=== PATIENT | male | born 1940 | race Caucasian/White ===

== ENCOUNTER → 2017-05-04 | Outpatient (CLI) | payer MEDICARE, BC ==
[~2017-05-04] MED LIST: ASPIRIN EC81 MG PO; COZAAR100 MG PO; CPAP INH; FISH OIL1000 MG PO; GLUCOPHAGE1000 MG PO; HYTRIN **IA 9/2 MG PO; LEVOTHROID (SY50 MCG PO; LIPITOR80 MG PO; MOBIC15 MG PO; NORCO 5-325 TA1 EACH PO; PLAVIX75 MG PO; PROTONIX40 MG PO; PROVENTIL OR V6.7 GM INH; SYMBICORT 16010.2 GM INH; TESSALON PERLE100 MG PO; VALTREX (NON-F500 MG PO; VITAMIN C500 M1 PO; VITAMIN D1000 UNIT PO; ZOLOFT100 MG PO
== END | disposition disaster alternative care site (69) ==
LOC: GRAD 12:36
DX: J84.10 Pulmonary fibrosis, unspecified (principal)

== ENCOUNTER → 2017-05-04 | Outpatient (CLI) | payer MEDICARE, BC | LOC: LGSMG 15:45 | DX: R06.09 Other forms of dyspnea (principal) ==

== ENCOUNTER 2017-06-18 14:29 | Day surgery (SDC) | payer MEDICARE, BC ==
[~2017-06-18] VITALS: Ht 172.7 cm; Wt 90.8 kg
--- NOTE | ~2017-06-18 | OR ---
PATIENT'S NAME: ARTHUR ROA [facility] AGE: 77 Y [address] ROOM: [place] [address] LOCATION: GPCU ADMIT DATE: 06/18/2017 OR/Procedure Report DISCHARGE DATE: 06/19/2017 FAMILY PHYSICIAN: oFx Tuttle MD ATTENDING PHYSICIAN: Nils Vasquez SURGEON: Manpreet Haney DO MANAGER ORANGE: DATE OF PROCEDURE: 06/18/2017 PREOPERATIVE DIAGNOSIS: Sick sinus syndrome with ventricular pauses greater than 4 seconds. POSTOPERATIVE DIAGNOSIS: Sick sinus syndrome with ventricular pauses greater than 4 seconds. PROCEDURE PERFORMED: Insertion of dual-chamber permanent pacemaker via the left subclavian system. REFERRING: Nils Vasquez MD BRIEF HISTORY: Mr. Roa is a 77-year-old white male with the above-noted diagnosis who has been brought to the operative suite today after informed consent was obtained for placement of his device. Appropriate IV sedation was achieved. He was sterilely prepped and draped over the anterior chest wall. The left infraclavicular space was anesthetized with 1% lidocaine. The patient was placed into a Trendelenburg position, the subclavian vein was accessed x2, and guidewires were placed under fluoroscopic guidance into the right atrium. An incision was created, and pocket was formed. Electrocautery was used for hemostasis. Guidewires were then brought through the incision via sheath and dilator assembly, and we placed our leads. We began with our right ventricular lead. It was a [employer] MRI lead, model 7742, serial #[id number], placed in the right ventricular distal septum, sensing R waves of 22.3 with a voltage threshold of 0.6 V at 0.5 msec and a pacing impedance of 1061 ohms. In a similar fashion, we placed our atrial lead, also a [employer] lead, model 7741, serial #[id number], placed in the right atrial appendage, sensing P waves of 5.3 with a measured threshold of 1 and a pacing impedance of 597 ohms. Each lead was then connected to the generator which was a [employer] MRI, model L111, serial #[id number]. Leads and generator were placed into the pocket. Appropriate sensing and pacing was noted. The patient was paced DDDR with a lower rate limit of 60 and maximal tracking rate of 130. The incision was then closed in a layered fashion with 2- 0 Vicryl and 4-0 Monocryl, and a sterile dressing was applied. The patient tolerated the procedure well and was transferred to the recovery area in stable condition. PATIENT'S NAME: ARTHUR ROA [facility] AGE: 77 Y [address] ROOM: [place] [address] LOCATION: GPCU ADMIT DATE: 06/18/2017 OR/Procedure Report DISCHARGE DATE: 06/19/2017 FAMILY PHYSICIAN: Fox Tuttle MD ATTENDING PHYSICIAN: Nils Vasquez DO NADEEM HENDERSON/modl /[id number] CC: Fox Tuttle MD d: 06/22/17 1325 t: 06/23/17 0754, OPERATIVE SUMMARY
[~2017-06-18 14:29] MED LIST changes: -NORCO 5-325 TA1 EACH PO
[2017-06-18 15:50] LABS: ALBUMIN 3.6 gm/dL (3.5-5.0); ANION GAP 15.3 (10.0-19.0); CREATININE 1.1 mg/dL (0.6-1.3); PHOSPHORUS 3.1 mg/dL (2.5-4.9); POTASSIUM 4.3 mMol/L (3.7-5.1)
[2017-06-18 15:54] LABS: BILIRUBIN URINE NEGATIVE (NEGATIVE); BLOOD URINE 25 /UL (NEGATIVE); COLOR URINE YELLOW (YELLOW); GLUCOSE URINE NEGATIVE (NEGATIVE); KETONE URINE NEGATIVE (NEGATIVE); LEUKOCYTES URINE NEGATIVE /UL (NEGATIVE); NITRITE URINE NEGATIVE (NEGATIVE); PROTEIN URINE 15 mg/dL (NEGATIVE); SPEC GRAVITY URINE 1.015 (1.003-1.035); TURBIDITY URINE CLEAR (CLEAR); UROBILINOGEN URINE NORMAL (NORMAL)
[2017-06-18 16:03] LABS: WBC URINE 0-2 #/HPF (NEGATIVE)
[2017-06-18 16:04] LABS: BACTERIA URINE NEGATIVE (NEGATIVE); EPITHELIAL URINE 0-2 #/HPF (NEGATIVE)
[2017-06-19] MEDS ORDERED: NORCO 5-325 TA1 EACH PO (12:32)
== END 2017-06-19 15:05 | disposition disaster alternative care site (69) ==
LOC: GPCU 14:29 → GSDC 14:29 → GPCU 14:29 → GSDC 06-19 15:05 → GPCU 06-19 15:05
PROVIDERS: Thoracic Surgery (Cardiothoracic Vascular Surgery)
PROC: 0JH606Z Insertion of Pacemaker, Dual Chamber into Chest Subcutaneous Tissue and Fascia, Open Approach (ICD-10-PCS; principal; 2017-06-18)
PROC: 02H63JZ Insertion of Pacemaker Lead into Right Atrium, Percutaneous Approach (ICD-10-PCS; 2017-06-18)
PROC: 02HK3JZ Insertion of Pacemaker Lead into Right Ventricle, Percutaneous Approach (ICD-10-PCS; 2017-06-18)
DX: I49.5 Sick sinus syndrome (principal); E11.9 Type 2 diabetes mellitus without complications; F32.9 Major depressive disorder, single episode, unspecified; I10 Essential (primary) hypertension; I25.10 Atherosclerotic heart disease of native coronary artery without angina pectoris; Z95.5 Presence of coronary angioplasty implant and graft; G47.33 Obstructive sleep apnea (adult) (pediatric); K21.9 Gastro-esophageal reflux disease without esophagitis; Z79.82 Long term (current) use of aspirin; Z79.02 Long term (current) use of antithrombotics/antiplatelets; Z79.899 Other long term (current) drug therapy
CPT/HCPCS: C1785; C1898; J0690; J7030; J7050